=== PATIENT | female | born 1990 | race Hispanic/Latino ===

== ENCOUNTER 2021-08-16 07:15 | Emergency (ER) | payer OTHER ==
[2021-08-16 08:11] LABS: Basophils % 0.9 % (0-1.3); Hematocrit 40.6 % (36.0-45.0); MPV 8.2 fL (7.6-11.3); RBC Red Blood Cell Count 4.89 M/uL (3.86-4.86)
[2021-08-16 08:12] LABS: Protime INR 1.03
[2021-08-16 08:18] LABS: ALT/SGPT 47 U/L (12-78); AST/SGOT 61 U/L (15-37); Albumin 3.7 g/dL (3.4-5.0); Alkaline Phosphatase 46 U/L (45-117); BUN Blood Urea Nitrogen 9 mg/dL (7-18); Bicarbonate 24 mmol/L (21-32); Bilirubin Direct 0.2 mg/dL (0-0.2); Bilirubin Total 0.5 mg/dL (0.2-1.0); Glucose Level 130 mg/dL (74-106); NT PRO-BNP 9 pg/mL (<125); Potassium 4.1 mmol/L (3.5-5.1); Protein, Total 8.2 g/dL (6.4-8.2); Sodium Level 140 mmol/L (136-145); Troponin (Emerg Dept Use Only) < 0.02 ng/mL (0.0-0.045)
--- NOTE | 2021-08-16 08:45 | RAD REPORT ---
EXAM DESCRIPTION: RAD - Chest Single View - 08/16/2021 8:39 am CLINICAL HISTORY: CHEST PAIN COMPARISON: No comparisons FINDINGS: Lines: None. Lungs: No evidence of edema or pneumonia. Pleural: No significant pleural effusions or pneumothorax. Cardiac: The heart size is within normal limits. Bones: No acute fractures. Other: IMPRESSION: No acute cardiopulmonary disease.
--- NOTE | 2021-08-16 08:57 | ER ---
Nurse's Notes [facility] April Name: Goldy Steele Age: 30 yrs Sex: Female : 1990 Arrival Date: 08/16/2021 Time: 07:18 Bed 19 Private MD: Diagnosis: Chest pain, unspecified Presentation: 08/16 07:31 Chief complaint: Patient states: Dull CP for 1 month. 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 Echo 2 weeks ago was negative. Today, CP was sharp and radiated into L shoulder. (6 am). Coronavirus screen: Vaccine status: Patient reports receiving the 2nd dose of the covid vaccine. Client denies travel out of the [place] in the last 14 days. At this time, the client does not indicate any symptoms associated with coronavirus-19. Ebola Screen: Patient denies travel to an Ebola-affected area in the 21 days before illness onset. Initial Sepsis Screen: Does the patient meet any 2 criteria? No. Patient's initial sepsis screen is negative. Does the patient have a suspected source of infection? No. Patient's initial sepsis screen is negative. Risk Assessment: Do you want to hurt yourself or someone else? Patient reports no desire to harm self or others. Onset of symptoms was July 17, 2021. 07:31 Method Of Arrival: Ambulatory [facility] 07:31 Acuity: BILL 3 ll1 Historical: - Allergies: 07:29 No Known Allergies; ll1 - PMHx: 07:29 Hypertensive disorder; pituitary tumor; pre-diabetes; ll1 - PSHx: 07:29 ablation; Cholecystectomy; section; ll1 - Immunization history:: Client reports receiving the 2nd dose of the Covid vaccine. - Social history:: Smoking status: Patient denies any tobacco usage or history of. Screenin:52 Abuse screen: Denies threats or abuse. Denies injuries from another. Nutritional ch5 screening: No deficits noted. Tuberculosis screening: No symptoms or risk factors identified. Fall Risk None identified. Assessment: 07:52 Pain: Complains of pain in chest Pain radiates to back and left arm Pain currently is 5 ch5 out of 10 on a pain scale. Pain began 2 hours ago. Cardiovascular: Rhythm is sinus rhythm. Vital Signs: 07:31 BP 145 / 102; Pulse 82; Resp 17; Temp 98.4; Pulse Ox 99% ; Pain 5/10; ll1 08:47 BP 121 / 82; Pulse 83; Resp 16; Pulse Ox 99% on R/A; ch5 ED Course: 07:18 Patient arrived in ED. mr 07:24 Vel Leonard PA is PHCP. jr8 07:24 Cooper Mayorga MD is Attending Physician. jr8 07:29 Arm band placed on Patient placed in an exam room, on a stretcher. ll1 07:34 Triage completed. ll1 07:47 Patient has correct armband on for positive identification. Placed in gown. Bed in low mh5 position. Call light in reach. Side rails up X 1. Adult w/ patient. Warm blanket given. monitor worker on. Pulse ox on. NIBP on. 07:48 EKG done, by ED staff, reviewed by Vel MCMAHON. 5 07:51 Gomez Gomez, RN is Primary Nurse. ch5 07:52 No provider procedures requiring assistance completed. Inserted saline lock: 22 gauge ch5 in right hand, using aseptic technique. 07:59 Basic Metabolic Panel Sent. ch5 07:59 CBC with Diff Sent. ch5 07:59 XRAY Chest (1 view) Sent. ch5 08:39 XRAY Chest (1 view) In Process Unspecified. EDMS 09:12 intact. ch5 Administered Medications: No medications were administered Outcome: 08:56 Discharge ordered by . jr8 09:12 Discharged to home ambulatory, with family. ch5 09:12 Condition: good 09:12 Discharge instructions given to patient, family. 09:13 Patient left the ED. ch5 Signatures: Dispatcher [employer] EDIN Emeterio Meghan dowling SnehakiranVel PA PA jrCelestina Merchant 5 Raine Doyle, RN RN [facility] Gomez Gomez, CHEKO RN 5
--- NOTE | 2021-08-16 08:57 | EDPHYS ---
Physician Documentation [facility] Name: Goldy Steele Age: 30 yrs Sex: Female : 1990 Arrival Date: 08/16/2021 Time: 07:18 Bed 19 Private MD: ED Physician Cooper Mayorga HPI: 08/16 08:19 This 30 yrs old Female presents to ER via Ambulatory with complaints of Chest jr8 Pain. 08:19 The patient or guardian reports chest pain that is located primarily in the anterior jr8 chest wall, left. The pain radiates to the left shoulder. Associated signs and symptoms: Pertinent positives: shortness of breath. The chest pain is described as sharp. Duration: The patient or guardian reports a single episode, that lasted 15 minute(s). Modifying factors: The symptoms are alleviated by nothing. the symptoms are aggravated by nothing. Severity of pain: At its worst the pain was moderate in the emergency department the pain has improved. The patient has not experienced similar symptoms in the past. The patient has not recently seen a physician. This is a 30-year-old female who presented to the emergency room with chest pain that was sudden onset in nature that started this morning. Stated that the pain lasted about 15 minutes. Stated that she was getting ready for work when she had a sharp shooting pain to the left side rating to the shoulder and back region the cause shortness of breath and for her to clutch her chest. Patient stated that she has had pressure episodes in the past and has had to have 2 ablations from SVT that has been several years ago. Patient stated that she has never felt pain like this before. Denies any trauma to the chest or any other precipitating events.. Historical: - Allergies: 07:29 No Known Allergies; ll1 - PMHx: 07:29 Hypertensive disorder; pituitary tumor; pre-diabetes; ll1 - PSHx: 07:29 ablation; Cholecystectomy; section; ll1 - Immunization history:: Client reports receiving the 2nd dose of the Covid vaccine. - Social history:: Smoking status: Patient denies any tobacco usage or history of. ROS: 08:19 Eyes: Negative for injury, pain, redness, and discharge, ENT: Negative for injury, jr8 pain, and discharge, Neck: Negative for injury, pain, and swelling, Abdomen/GI: Negative for abdominal pain, nausea, vomiting, diarrhea, and constipation, Back: Negative for injury and pain, MS/Extremity: Negative for injury and deformity, Skin: Negative for injury, rash, and discoloration, Neuro: Negative for headache, weakness, numbness, tingling, and seizure. 08:19 Cardiovascular: Positive for chest pain. 08:19 Respiratory: Positive for shortness of breath. Exam: 08:19 Constitutional: This is a well developed, well nourished patient who is awake, alert, jr8 and in no acute distress. Neck: Trachea midline, no thyromegaly or masses palpated, and no cervical lymphadenopathy. Supple, full range of motion without nuchal rigidity, or vertebral point tenderness. No Meningismus. Chest/axilla: Normal chest wall appearance and motion. Nontender with no deformity. No lesions are appreciated. Cardiovascular: Regular rate and rhythm with a normal S1 and S2. No gallops, murmurs, or rubs. Normal PMI, no JVD. No pulse deficits. Respiratory: Lungs have equal breath sounds bilaterally, clear to auscultation and percussion. No rales, rhonchi or wheezes noted. No increased work of breathing, no retractions or nasal flaring. Abdomen/GI: Soft, non-tender, with normal bowel sounds. No distension or tympany. No guarding or rebound. No evidence of tenderness throughout. Back: No spinal tenderness. No costovertebral tenderness. Full range of motion. Skin: Warm, dry with normal turgor. Normal color with no rashes, no lesions, and no evidence of cellulitis. MS/ Extremity: Pulses equal, no cyanosis. Neurovascular intact. Full, normal range of motion. Neuro: Awake and alert, GCS 15, oriented to person, place, time, and situation. Cranial nerves II-XII grossly intact. Motor strength 5/5 in all extremities. Sensory grossly intact. 08:19 ECG was reviewed by the Attending Physician. Vital Signs: 07:31 BP 145 / 102; Pulse 82; Resp 17; Temp 98.4; Pulse Ox 99% ; Pain 5/10; ll1 08:47 BP 121 / 82; Pulse 83; Resp 16; Pulse Ox 99% on R/A; ch5 MDM: 07:25 Patient medically screened. [facility] 08:19 Differential diagnosis: abnormal EKG, acute myocardial infarction, acute pericarditis, jr8 anxiety, chest wall pain, cholecystitis, Cholelithiasis costochondritis, esophagitis, gastritis, pancreatitis, pleurisy, pneumonia, pneumothorax, pulmonary embolus, stable angina, thoracic aortic disection, unstable angina. Data reviewed: vital signs, nurses notes, lab test result(s), EKG, radiologic studies, plain films. Data interpreted: Pulse oximetry: on room air is 99 %. Interpretation: normal. Counseling: I had a detailed discussion with the patient and/or guardian regarding: the historical points, exam findings, and any diagnostic results supporting the discharge/admit diagnosis, lab results, radiology results. 08:55 DANGELO Risk Score: 1 - Recent [<24hrs] Severe Angina, TOTAL SCORE = 1. 08/16 07:43 Order name: Basic Metabolic Panel 08/16 07:43 Order name: CBC with Diff 08/16 07:43 Order name: LFT's; Complete Time: 08:23 08/16 07:43 Order name: Magnesium; Complete Time: 08:23 08/16 07:43 Order name: NT PRO-BNP; Complete Time: 08:23 08/16 07:43 Order name: PT-INR; Complete Time: 08:23 08/16 07:43 Order name: Troponin (emerg Dept Use Only); Complete Time: 08:23 08/16 07:43 Order name: XRAY Chest (1 view); Complete Time: 08:55 08/16 07:43 Order name: EKG; Complete Time: 07:43 08/16 07:43 Order name: Cardiac monitoring; Complete Time: 07:47 08/16 07:43 Order name: EKG - Nurse/Tech; Complete Time: 07:47 08/16 07:43 Order name: IV Saline Lock; Complete Time: 07:59 08/16 07:43 Order name: Basic Metabolic Panel; Complete Time: 08:23 EDMS 08/16 07:43 Order name: CBC with Automated Diff; Complete Time: 08:23 EDMS 08/16 07:43 Order name: Labs collected and sent; Complete Time: 07:59 08/16 07:43 Order name: O2 Per Protocol; Complete Time: 07:47 18 07:43 Order name: O2 Sat Monitoring; Complete Time: :47 jr8 EC:19 Rate is 86 beats/min. Rhythm is regular, Sinus Rhythm. QRS [place] is Normal. [place] interval jr8 is normal at 158 msec. QRS interval is normal at 78 msec. QT interval is normal at 440 msec. No Q waves. T waves are Inverted in lead V1. No ST changes noted. Clinical impression: Normal ECG. Interpreted by me. Reviewed by me. Administered Medications: No medications were administered Disposition Summary: 08/16/21 08:56 Discharge Ordered Location: Home jr8 Problem: new jr8 Symptoms: have improved jr8 Condition: Stable jr8 Diagnosis - Chest pain, unspecified jr8 Followup: jr8 - With: Private Physician - When: 2 - 3 days - Reason: Recheck today's complaints, Continuance of care, Re-evaluation by your physician Discharge Instructions: - Discharge Summary Sheet jr8 - Nonspecific Chest Pain, Adult jr8 Forms: - Medication Reconciliation Form jr8 - Thank You Letter jr8 - Antibiotic Education jr8 - Prescription Opioid Use jr8 - Work release form ch5 Addendum: 08/17/2021 14:17 Co-signature as Attending Physician, Cooper Mayorga MD I agree with the assessment and s p3 plan of care. Signatures: Dispatcher [employer] EDVel Mayfield PA PA jr8 Raine Doyle, RN RN ll1 Cooper Mayorga MD MD sp3
--- NOTE | 2021-08-16 08:57 | EKG ---
Test Date: 2021-08-16 Test Time: 07:40:56 Cathodic Protection Technician: SIOBHAN MEASUREMENT RESULTS: Intervals: Rate: 86 WY: 158 QRSD: 78 QT: 368 QTc: 440 [place]: P: 42 WY: 158 QRS: 56 T: 55 INTERPRETIVE STATEMENTS: Normal sinus rhythm Normal ECG No previous ECG available for comparison Electronically Signed On 08-16-21 08:57:11 CDT by Hardeep [place]
[2021-08-16 09:24] VITALS: TEMP 98.4; O2SAT 99
[2021-08-16 09:25] VITALS: BP 121/82
== END 2021-08-16 09:13 | disposition home or self-care (01) ==
LOC: ER 07:15
DX: R07.9 Chest pain, unspecified (principal); I10 Essential (primary) hypertension
CPT/HCPCS: 36415; 71045; 80048; 80076; 83735; 83880; 84484; 85025; 85610; 93005; 99284